=== PATIENT | male | born 1955 | race Caucasian/White ===

== ENCOUNTER 2020-03-06 11:16 | Outpatient (REF) | payer MEDICARE, OTHER, SELFPAY ==
[2020-03-06 12:54] LABS: PSA,Total (Free>4and<10) 4.92 ng/mL (0.00-4.00)
[2020-03-07 12:57] LABS: Free Prostate Spec Ag 0.8 ng/mL; Percent Free Prostate Spec Ag 14 % (calc) (>25); Prostate Specific Ag Total 5.8 ng/mL (< OR = 4.0)
== END 2020-03-06 11:17 | disposition home or self-care (01) ==
LOC: HO.LAB 11:16
PROVIDERS: PCP Pediatrics; Visit Provider Urology
DX: R97.20 Elevated prostate specific antigen [PSA] (principal)
CPT/HCPCS: 84153

== ENCOUNTER 2020-07-17 12:12 | Outpatient (REF) | payer MEDICARE, MEDICAID, SELFPAY ==
--- NOTE | ~2020-07-17 | XR_ITS ---
EXAMINATION: XR BILATERAL HIPS WITH AP PELVIS CLINICAL INFORMATION: Bilateral hip pain. COMPARISON: None TECHNIQUE: AP view of the pelvis and 2 views of each hip were obtained. FINDINGS: Normal articulation at bilateral hip joints. Mild bilateral hip joint narrowing. No evidence of acute fracture or dislocation. SI joints, symphysis pubis are intact. No acute pelvic fracture is identified. XR/XR hip BI w PEL1V IMPRESSION: Mild bilateral hip joint arthritis. No acute osseous abnormality seen.
== END 2020-07-17 12:13 | disposition home or self-care (01) ==
LOC: HO.XRAY 12:12
PROVIDERS: PCP Pediatrics; Visit Provider Pediatrics
DX: M25.551 Pain in right hip (principal); M25.552 Pain in left hip
CPT/HCPCS: 73521

== ENCOUNTER 2021-02-06 08:09 | Outpatient (REF) | payer MEDICARE, OTHER, SELFPAY ==
--- NOTE | ~2021-02-06 | XR_ITS ---
EXAMINATION: XR BILATERAL HIPS WITH AP PELVIS CLINICAL INFORMATION: Hip pain. COMPARISON: Hip radiographs dated 07/17/2020. TECHNIQUE: AP view the pelvis as well as AP and frog-leg lateral views of the right and left hip. FINDINGS: No acute fracture or dislocation. Mild right and left hip joint space narrowing. No significant marginal osteophytes. No osseous erosion. No abnormal soft tissue calcification. XR/XR hip BI w PEL1V IMPRESSION: Mild right and left hip arthrosis, unchanged.
== END 2021-02-06 08:10 | disposition home or self-care (01) ==
LOC: HO.XRAY 08:09
PROVIDERS: PCP Pediatrics; Visit Provider Pediatrics
DX: M25.551 Pain in right hip (principal); M25.552 Pain in left hip
CPT/HCPCS: 73521

== ENCOUNTER → 2022-03-31 08:50 | Outpatient (REF) | payer MEDICARE, OTHER, SELFPAY ==
--- NOTE | 2022-03-31 08:53 | CA_ITS ---
Transthoracic Echocardiogram Patient (Last, First, Middle): Ananth Jarvis A Gender: Male Date of : 1955 Age: 66 Procedure Date: 03/31/2022 Procedure Type: Transthoracic Echocardiogram Location: OP Height: 165.1 cm Weight: 69.4 kg BSA: 1.77 m2 Heart Rate: 74 bpm BP: 162 / 80 mmHg Cooper Helper: SB Referring MD: Marci Doan MD Manager Night: Faisal Mathis MD Symptoms: ELEV BP Study Quality: Adequate ECG Rhythm: Sinus Conclusions: - 1. Mildly reduced LV systolic function with LVEF of 45-50% with impaired relaxation filling pattern 2. Normal cardiac valvular Doppler 3. Normal RV systolic pressure 4. No gross pericardial effusion Findings Left Ventricle Normal left ventricular cavity size. There is normal left ventricular wall thickness. The left ventricular systolic function is mildly decreased. The visually estimated ejection fraction is between 45-50%. Spectral Doppler is indicative of an impaired relaxation filling pattern. E/E prime ratio is between 8 and 15 consistent with indeterminate filling pressures. Right Ventricle Normal right ventricular cavity size and systolic function. Atria The left atrium is normal in size. There is lipomatous hypertrophy of the interatrial septum. There is no evidence of interatrial shunt. The right atrium is normal in size. Aortic Valve Normal aortic valve structure and function. There is no aortic valve stenosis. There is no aortic valve regurgitation. Mitral Valve Normal mitral valve structure and function. There is trace mitral valve regurgitation. There is no mitral valve stenosis. Pulmonic Valve The pulmonic valve is likely normal. Tricuspid Valve Normal tricuspid valve structure. There is trace tricuspid valve regurgitation. The right ventricular systolic pressure is normal. The right ventricular systolic pressure is 25 mmHg. Normal right atrial pressure. There is no evidence of pulmonary hypertension. Great Vessels All visible segments of the aorta are normal in size. The pulmonary artery was not well visualized. Venous The inferior vena cava is normal in size and collapses greater than 50% with inspiration. Pericardium/Pleural There is no evidence of pericardial effusion. Prior Study Comparison No prior study available for comparison. Measurements 2D Linear Measurements IVSd: 0.76 0.6-0.9/0.6-1.0 cm LVIDd: 4.82 3.9-5.3/4.2-5.9 cm LVIDd Index: 2.72 2.4-3.2/2.2-3.1 cm/m2 LVIDs: 3.90 2.0-3.6 cm LVPWd: 0.62 0.7-1.1 cm LA Diam: 2.70 2.7-3.8/3.0-4.0 cm LAIDs Index: 1.53 1.5-2.3 cm/m2 LV Mass: 131.28 67-162/88-224 g LV Mass Index: 74.17 43-95/49-115 g/m2 LVOT Diam: 2.10 3.0+(-)1.3 cm 2D Systolic Function EF 4C: 41.00 >55% EF 2C: 46.80 >55% EF BiP: 43.70 >55% Mitral Valve MV Pk E: 0.51 MV PK A: 0.80 MV Decel Time: 173.00 E/A: 0.60 E'Lateral: 5.77 E'Medial: 6.42 E/E' Med: 8.00 E/E' Lat: 8.90 PHT: 51.00 MVA PHT: 4.31 Decel Ness: 2.98 Aortic Valve AoV Pk [place]oteo: 1.11 AoV Pk Grad: 5.00 NAVYA: 2.75 LVOT LVOT Pk [place]oteo: 0.88 LVOT Mn [place]ote[place]: 0.57 LVOT VTI: 0.17 LVOT Pk Grad: 3.00 LVOT Mn Grad: 2.00 LVOT Diam: 2.10 LVOT Area: 3.46 Diastolic Function MV Pk E: 0.51 MV Pk A: 0.80 E/A: 0.60 E'Medial: 6.42 E/E' Med: 8.00 E' Laterial: 5.77 E/E' Lat: 8.90 Right Ventricle TAPSE (mm): 16.60 TVS' Timoteo: 11.60 Tricuspid Valve TR Pk Timoteo: 2.36 TR Pk Grad: 22.00 RA Press: 3.00 RVSP: 25.00 Great Vessels Aorta Sinus of Valsalva: 3.40 2.0-3.5 cm Ao Asc: 3.00 2.1-3.4 cm Pulmonary Veins Pulm Vein S/D 1.40 Pulmonary Valve PV Pk Timoteo: 1.31 Peak PV Grad: 7.00 Updated in Other Vendor System with Status of Final Faisal Mathis MD electronically signed on 04/01/2022 11:38:55 AM with status of Final
== END ==
LOC: HO.CARD 08:50
PROVIDERS: PCP Pediatrics; Visit Provider Pediatrics
DX: E78.2 Mixed hyperlipidemia (principal); R03.0 Elevated blood-pressure reading, without diagnosis of hypertension
CPT/HCPCS: 93306

== ENCOUNTER → 2022-05-26 08:07 | Outpatient (BNVA) | payer MEDICARE, MEDICAID, SELFPAY | PROVIDERS: PCP Pediatrics; Visit Provider Internal Medicine Cardiovascular Disease | DX: I42.9 Cardiomyopathy, unspecified (principal); I10 Essential (primary) hypertension; R00.2 Palpitations; Z79.899 Other long term (current) drug therapy | CPT/HCPCS: 93005; 99202 ==

== ENCOUNTER → 2022-06-04 09:34 | Outpatient (REF) | payer MEDICARE, OTHER, SELFPAY ==
--- NOTE | 2022-06-04 09:39 | HM_ITS ---
Conclusion: 1. Patient was monitored for total period of 6 days and 22 hours 2. Baseline was normal sinus rhythm with average heart of 71 beats per minute 3. No significant pauses or bradycardia noted 4. Very rare ectopy noted 5. No patient reported in the diary but patient activated the monitor x1 which correlated with sinus rhythm MTDD
== END ==
LOC: HO.CARD 09:34
PROVIDERS: PCP Pediatrics; Visit Provider Internal Medicine Cardiovascular Disease
DX: I42.9 Cardiomyopathy, unspecified (principal); R00.2 Palpitations
CPT/HCPCS: 93242

== ENCOUNTER → 2022-06-11 09:30 | Outpatient (REF) | payer MEDICARE, OTHER, SELFPAY ==
--- NOTE | ~2022-06-11 | NM_ITS ---
Exercise Myocardial perfusion study Indication: Chest pain to evaluate for myocardial ischemia Technique: The patient was brought in for an exercise perfusion study on 06/11/2022. Patient performed exercise as per James protocol and was injected 25 mCi of sestamibi was given intravenously one target HR was achieved. Images were obtained using the SPECT gamma camera interlaced with the gating device. Images were obtained in supine position. Resting perfusion study was performed on 06/15/2022. Patient was administered 25 mCi of sestamibi intravenously at rest. Images were then obtained in supine position. Images obtained with and without CT attenuation. Total DLP 88 mGy-cm Images were processed with the software and compared side to side in short axis, horizontal long axis and vertical long axis views. Findings: The stress perfusion study showed non attenuated images show mildly reduced uptake in the inferoapical and inferior wall of the LV myocardium. Findings are somewhat suboptimal due to subdiaphragmatic uptake interfering with inferior wall uptake. Attenuation corrected images are suboptimal. The gated study shows normal LV systolic function with calculated LVEF of 59%. LV cavity is normal in size. The gated study shows normal systolic wall thickening and contraction of all segments. There is mildly transient ischemic dilation. Resting study shows improvement in uptake in the inferior and inferoapical wall on non attenuated images. Attenuated corrected images are of suboptimal quality.. Gating at rest reveals normal systolic wall motion with visually estimated ejection fraction at greater than 60%. The findings are consistent with reversible defect that area of inferoapical wall suggestive of ischemia with possible mild ischemia. Inferior wall in the RCA territory.. NM/NM cardiolite stress test Impression: 1. Reversible defect in the RCA territory suggestive of ischemia 2. Gated LVEF is 59% 3. Transient ischemic dilatation present Stress EKG is negative for ischemia
--- NOTE | 2022-06-11 09:33 | CA_ITS ---
Acquisition Time: 2022-06-11 09:50:50 Total Exercise Time: 00:04:51 Test Indications: Palpitations Medications: LORATADINE LOSARTAN ROSUVASTATIN FINASTERIDE CARVEDILOL Protocol: FABIOLA Max HR: 146 BPM 96% of Pred: 151 BPM Max BP: 150/080 mmHG Max Work Load: 5.9 METS Exercise stress test with exercise 4 min 51 sec of Fabiola protocol ( in stage 2 speed reduced to 2.2 MPH) achieving 96% MPHR, with fatigue and back discomfort, no chest discomfort, with isolated PVCs and one ventricular cuplet in stage 2, with normotensive response to exercise, without EKG changes meeting criteria for ischemia. Nuclear images pending. Test reviewed with Dr Mathis Referred By: Faisal Mathis Overread By: JOSE GARZA
== END ==
LOC: HO.CARD 09:30
PROVIDERS: Visit Provider Internal Medicine Cardiovascular Disease
DX: R07.9 Chest pain, unspecified (principal); I42.9 Cardiomyopathy, unspecified
CPT/HCPCS: 78452; 93017; A9500

== ENCOUNTER → 2022-06-16 08:09 | Outpatient (BNVA) | payer MEDICARE, MEDICAID, SELFPAY | PROVIDERS: PCP Pediatrics; Referring Provider Pediatrics; Visit Provider Internal Medicine Cardiovascular Disease | DX: I42.9 Cardiomyopathy, unspecified (principal) | CPT/HCPCS: 99212 ==

== ENCOUNTER → 2022-07-07 08:39 | Outpatient (BNVA) | payer MEDICARE, MEDICAID, SELFPAY | PROVIDERS: PCP Pediatrics; Referring Provider Pediatrics; Visit Provider Internal Medicine Cardiovascular Disease | DX: I42.9 Cardiomyopathy, unspecified (principal); I25.10 Atherosclerotic heart disease of native coronary artery without angina pectoris | CPT/HCPCS: 99212 ==

== ENCOUNTER 2022-07-23 08:16 | Outpatient (REF) | payer MEDICARE, SELFPAY ==
--- NOTE | ~2022-07-23 | XR_ITS ---
EXAMINATION: RIGHT SHOULDER AND CERVICAL SPINE CLINICAL INFORMATION: Right shoulder pain. COMPARISON: None. TECHNIQUE: Right shoulder 4 views. Cervical spine 6 views. FINDINGS: Right Shoulder: The glenohumeral and AC joint space is maintained normal. No visible acute fracture, dislocation or subluxation seen. No bony erosive changes. The soft tissues are normal. Cervical Spine: There is normal cervical lordosis. The vertebral heights and alignment is normal. There is loss of C5-C6, C6-C7 and C7-T1 disc heights. On oblique view, there is uncovertebral hypertrophic changes at C4-C5 and C5-C6 and C6-C7 disc levels with minimal bilateral narrowing of neural foramina. No acute fracture or dislocation seen. The prevertebral soft tissues are normal. XR/XR shoulder RT min 2V IMPRESSION: Unremarkable right shoulder exam. Degenerative disc changes with uncovertebral hypertrophic changes bilaterally as described above. No visible acute fracture or dislocation seen. If patient has persistent right shoulder pain, a MRI of the cervical spine can be obtained.
--- NOTE | ~2022-07-23 | XR_ITS ---
EXAMINATION: RIGHT SHOULDER AND CERVICAL SPINE CLINICAL INFORMATION: Right shoulder pain. COMPARISON: None. TECHNIQUE: Right shoulder 4 views. Cervical spine 6 views. FINDINGS: Right Shoulder: The glenohumeral and AC joint space is maintained normal. No visible acute fracture, dislocation or subluxation seen. No bony erosive changes. The soft tissues are normal. Cervical Spine: There is normal cervical lordosis. The vertebral heights and alignment is normal. There is loss of C5-C6, C6-C7 and C7-T1 disc heights. On oblique view, there is uncovertebral hypertrophic changes at C4-C5 and C5-C6 and C6-C7 disc levels with minimal bilateral narrowing of neural foramina. No acute fracture or dislocation seen. The prevertebral soft tissues are normal. XR/XR cervical spine 5V IMPRESSION: Unremarkable right shoulder exam. Degenerative disc changes with uncovertebral hypertrophic changes bilaterally as described above. No visible acute fracture or dislocation seen. If patient has persistent right shoulder pain, a MRI of the cervical spine can be obtained.
== END 2022-07-23 08:17 | disposition home or self-care (01) ==
LOC: HO.XRAY 08:16
PROVIDERS: PCP Pediatrics; Visit Provider Pediatrics
DX: M25.511 Pain in right shoulder (principal); M54.2 Cervicalgia; M05.79 Rheumatoid arthritis with rheumatoid factor of multiple sites without organ or systems involvement; G89.29 Other chronic pain
CPT/HCPCS: 72050; 73030

== ENCOUNTER 2022-09-17 07:14 | Outpatient (REF) | payer MEDICARE, SELFPAY ==
[2022-09-17 08:15] LABS: Cholesterol 204 mg/dL; HDL Cholesterol 45 mg/dL; LDL Cholesterol Calculated 146 mg/dl; Triglycerides 65 mg/dL
== END 2022-09-17 07:15 | disposition home or self-care (01) ==
LOC: HO.LAB 07:14
PROVIDERS: PCP Pediatrics; Visit Provider Internal Medicine Cardiovascular Disease
DX: I25.10 Atherosclerotic heart disease of native coronary artery without angina pectoris (principal)
CPT/HCPCS: 36415; 80061

== ENCOUNTER → 2022-09-23 13:49 | Outpatient (BNVA) | payer MEDICARE, SELFPAY | PROVIDERS: PCP Pediatrics; Referring Provider Pediatrics; Visit Provider Nurse Practitioner Family | DX: I25.10 Atherosclerotic heart disease of native coronary artery without angina pectoris (principal); I42.9 Cardiomyopathy, unspecified; I10 Essential (primary) hypertension; E78.5 Hyperlipidemia, unspecified | CPT/HCPCS: 99212 ==

== ENCOUNTER 2022-12-09 07:10 | Outpatient (REF) | payer MEDICARE, SELFPAY ==
[2022-12-09 09:53] LABS: Alanine Aminotransferase 17 U/L (0-40); Albumin Level 4.1 g/dL (3.5-5.0); Alkaline Phosphatase 91 U/L (39-117); Anion Gap 11 (12-20); Aspartate Amino Transferase 19 U/L (5-37); Bilirubin Total 1.5 mg/dL (0.0-1.0); Blood Urea Nitrogen 12 mg/dL (9-16); Calcium 9.7 mg/dL (8.4-10.2); Carbon Dioxide 26 mmol/L (22-29); Chloride 105 mmol/L (96-108); Cholesterol 188 mg/dL; Estimated Glomerular Filt Rate > 60; Glucose Fasting 90 mg/dL (60-99); HDL Cholesterol 43 mg/dL; LDL Cholesterol Calculated 130 mg/dl; Sodium 138 mmol/L (135-145); Total Protein 7.3 g/dL (6.5-8.0); Triglycerides 79 mg/dL
== END 2022-12-09 07:11 | disposition home or self-care (01) ==
LOC: HO.LAB 07:10
PROVIDERS: PCP Pediatrics; Visit Provider Nurse Practitioner Family
DX: E78.5 Hyperlipidemia, unspecified (principal)
CPT/HCPCS: 36415; 80053; 80061

== ENCOUNTER → 2023-03-28 09:13 | Outpatient (REF) | payer MEDICARE, SELFPAY ==
--- NOTE | 2023-03-28 09:16 | CA_ITS ---
Transthoracic Echocardiogram Patient (Last, First, Middle): Ananth Jarvis A Gender: Male Date of : 1955 Age: 67 Procedure Date: 03/28/2023 Procedure Type: Transthoracic Echocardiogram Location: OP Height: 165.1 cm Weight: 65.77 kg BSA: 1.73 m2 Heart Rate: 65 bpm BP: 128 / 70 mmHg Department Mgr: LEE ANN Referring MD: Shantell LAMBERT Manager Continuous Improvement: Faisal Mathis MD Symptoms: I42.9 - Cardiomyopathy, unspecified Study Quality: Adequate ECG Rhythm: Sinus Conclusions: - 1. Low normal LV ejection fraction with LVEF of 50-55% with impaired relaxation filling pattern 2. Normal cardiac valvular Doppler 3. Normal RV systolic pressure 4. No gross pericardial effusion Findings Left Ventricle Normal left ventricular cavity size. There is normal left ventricular wall thickness. The left ventricular systolic function is low normal. The visually estimated ejection fraction is between 50-55%. Spectral Doppler is indicative of an impaired relaxation filling pattern. E/E prime ratio is between 8 and 15 consistent with indeterminate filling pressures. Right Ventricle Normal right ventricular cavity size and systolic function. Atria The left atrium is normal in size. There is no evidence of interatrial shunt. The right atrium is normal in size. There is a prominent Chiari network. Aortic Valve There is mild thickening of the aortic valve. There is no aortic valve stenosis. There is no aortic valve regurgitation. Mitral Valve Normal mitral valve structure and function. There is trace mitral valve regurgitation. There is no mitral valve stenosis. Pulmonic Valve The pulmonic valve is likely normal. There is trace pulmonic valve regurgitation. Tricuspid Valve Normal tricuspid valve structure. There is mild tricuspid valve regurgitation. The right ventricular systolic pressure is normal. The right ventricular systolic pressure is 29 mmHg. Normal right atrial pressure. There is no evidence of pulmonary hypertension. Great Vessels The pulmonary artery was not well visualized. Venous The inferior vena cava is normal in size and collapses greater than 50% with inspiration. Pericardium/Pleural There is no evidence of pericardial effusion. Prior Study Comparison Changes noted compared to prior study dated: 03/31/2022. LV systolic function is marginally improved Measurements 2D Linear Measurements IVSd: 0.97 0.6-0.9/0.6-1.0 cm LVIDd: 4.64 3.9-5.3/4.2-5.9 cm LVIDd Index: 2.68 2.4-3.2/2.2-3.1 cm/m2 LVIDs: 3.84 2.0-3.6 cm LVPWd: 0.67 0.7-1.1 cm LV Mass: 154.18 67-162/88-224 g LV Mass Index: 89.12 43-95/49-115 g/m2 LVOT Diam: 2.40 3.0+(-)1.3 cm 2D Systolic Function EF 4C: 43.30 >55% EF 2C: 56.20 >55% EF BiP: 51.10 >55% Mitral Valve MV Pk E: 0.73 MV PK A: 0.82 MV Decel Time: 179.00 E/A: 0.90 E'Lateral: 8.92 E'Medial: 7.51 E/E' Med: 9.70 E/E' Lat: 8.20 PHT: 52.00 MVA PHT: 4.23 Decel [place]: 4.06 Aortic Valve AoV Pk Timoteo: 1.14 AoV Pk Grad: 5.00 NAVYA: 2.97 LVOT LVOT Pk Timoteo: 0.83 LVOT Mn Timoteo: 0.55 LVOT VTI: 0.18 LVOT Pk Grad: 3.00 LVOT Mn Grad: 1.00 LVOT Diam: 2.40 LVOT Area: 4.52 Diastolic Function MV Pk E: 0.73 MV Pk A: 0.82 E/A: 0.90 E'Medial: 7.51 E/E' Med: 9.70 E' Laterial: 8.92 E/E' Lat: 8.20 Right Ventricle TAPSE (mm): 25.20 TVS' Timoteo: 9.79 Tricuspid Valve TR Pk Timoteo: 2.54 TR Pk Grad: 26.00 RA Press: 3.00 RVSP: 29.00 Great Vessels Aorta Sinus of Valsalva: 3.30 2.0-3.5 cm Ao Asc: 3.10 2.1-3.4 cm Pulmonary Valve PV Pk Timoteo: 1.25 Peak PV Grad: 6.00 Updated in Other Vendor System with Status of Final Faisal Mathis MD electronically signed on 03/28/2023 12:06:58 PM with status of Final
== END ==
LOC: HO.CARD 09:13
PROVIDERS: PCP Pediatrics; Visit Provider Nurse Practitioner Family
DX: I42.9 Cardiomyopathy, unspecified (principal)
CPT/HCPCS: 93306

== ENCOUNTER → 2023-03-28 09:16 | Outpatient (BNV) | payer MEDICARE, SELFPAY | PROVIDERS: PCP Pediatrics; Visit Provider Internal Medicine Cardiovascular Disease | DX: I36.1 Nonrheumatic tricuspid (valve) insufficiency (principal) | CPT/HCPCS: 93306 ==

== ENCOUNTER 2023-04-05 13:14 | Outpatient (AMB) | payer MEDICARE, SELFPAY ==
[2023-04-05 13:18] VITALS: BP 116/70; PULSE 65; BMI 23.8
--- NOTE | 2023-04-05 13:18 | MHC.OFFVIS ---
Intake Vital Signs 04/05/23 13:18 Height 5 ft 5 in Weight 143 lb 4.807 oz BMI 23.8 BP 116/70 Blood Pressure Location Lt brachial Position Sitting Pulse 65 Intake Visit Reasons: 6 mth f/up echo Intake Note: 6 month follow-up with ekg after echo feeling good Inspector Repairer [place] Required: No Allergies seasonal Allergy (Unknown, Uncoded 07/07/22 08:45) Unknown Medication List - Last Reconciled 04/05/23 by Faisal Mathis MD aspirin 81 mg PO DAILY carvedilol 6.25 mg PO BID 90 days cholecalciferol (vitamin D3) 2,000 units PO QWEEK finasteride 5 mg PO DAILY fluticasone propionate 110 mcg/actuation (Flovent HFA) 110 mcg inhalation BID loratadine 10 mg PO DAILY losartan 25 mg PO BID 90 days omeprazole 20 mg PO BID rosuvastatin 20 mg PO DAILY 90 days tramadol 50 mg PO TID PRN HPI HPI Comments History of Present Illness Details Ananth comes for follow-up. He says that he is feeling very well. He denies any significant symptoms from cardiac perspective. Exercise regular. Denies any exertional chest pain or shortness of breath. No orthopnea, PND, leg edema. Blood pressure is well optimized at home. His last LDL was not well optimized at 130 mg/dL. Any palpitations, lightheadedness, syncope. [facility] Medical History CAD (coronary artery disease) Cardiomyopathy High blood pressure Family History Mother Diabetes Social History Alcohol intake: never Patient Tobacco Use Status: Former Tobacco user Review of Systems Const Denies chills, Denies fatigue, Denies fever(s), Denies frequent falls, Denies weakness, Denies weight gain and Denies weight loss ENT Denies dizziness Card Denies chest pain, Denies leg edema, Denies lightheadedness, Denies palpitations, Denies dyspnea, Denies dyspnea on exertion, Denies orthopnea and Denies other (loss of consciousness) Resp Denies cough, Denies dyspnea and Denies dyspnea on exertion GI Denies hematochezia and Denies change in stool character Musc Denies abnormal gait, Denies muscle weakness, Denies numbness, Denies radiating pain into limb and Denies tingling Neuro Denies abnormal gait, Denies dizziness, Denies frequent falls, Denies numbness, Denies tingling and Denies weakness Endo Denies fatigue and Denies palpitations Physical Exam Vital Signs: Last Vital Signs Pulse 65 04/05/23 13:18 BP 116/70 04/05/23 13:18 BMI result Body Mass Index 23.8 Const General: cooperative, healthy appearing, comfortable and no acute distress Orientation/consciousness: patient oriented x3 Neck Neck: Yes normal visual inspection and Yes no JVD Resp Effort & Inspection: normal respiratory effort Auscultation: clear to auscultation bilaterally, no crackles, no rales, no rhonchi and no wheezes Cardio Jugular venous distension: no JVD Rate: regular rate Rhythm: regular rhythm Heart sounds: S1 normal heart sound present, S2 normal heart sound present, no gallops, no murmurs and no rubs Neuro General: patient oriented x3 Extrem General: Yes normal to inspection and No no pedal edema Psych Appearance: grossly normal Mental Status: mental status grossly normal Speech and movement: Normal speech and movement present Office Procedures EKG Details: EKG shows normal sinus rhythm with normal EKG [id number], Complete Assessment & Plan Assessment & Plan (1) Cardiomyopathy: Code(s): I42.9 - Cardiomyopathy, unspecified Plan: Cardiomyopathy with low normal LVEF with improved LV ejection fraction on medical therapy. Importance of medical therapy was discussed. Continue current neurohormonal modulation with losartan carvedilol. Blood pressure is well optimized. Monitor echocardiogram in the year's time. Avoidance of cardiotoxic agent such as alcohol was discussed. Signs and symptoms of heart failure were discussed. He understands. (2) CAD (coronary artery disease): Comment: nonobstructive mild disease by coronary CTA, does not explain his cardiomyopathy. False-positive myocardial perfusion imaging Code(s): I25.10 - Atherosclerotic heart disease of [place] coronary artery without angina pectoris Plan: Nonobstructive CAD by cardiac catheterization. Doing well with no symptoms of angina. His LDL is not well optimized. Will further uptitrate Crestor to 40 mg daily. Target goal LDL closer to 70 mg/dL. Continue aggressive blood pressure control which is well optimized. Continue low-dose aspirin therapy. Will follow up in the clinic in 1 year's time, sooner p.r.n.. Thank you for allowing me to partake in his care Orders: Orders CA echo transthoracic complete 50 Weeks I42.9 - Cardiomyopathy, unspecified Coding Level of Care Code Est Pt Level 4 (41669) Diagnoses Cardiomyopathy I42.9 CAD (coronary artery disease) I25.10 CPT Codes EKG - CPT: 64376-[id number], Complete ([id number])
== END 2023-04-05 13:47 | disposition home or self-care (01) ==
PROVIDERS: Visit Provider Internal Medicine Cardiovascular Disease
DX: I42.9 Cardiomyopathy, unspecified (principal); I25.10 Atherosclerotic heart disease of native coronary artery without angina pectoris
CPT/HCPCS: 93010; 99214

== ENCOUNTER → 2023-04-05 13:14 | Outpatient (BNVA) | payer MEDICARE, SELFPAY | PROVIDERS: Visit Provider Internal Medicine Cardiovascular Disease | DX: I25.10 Atherosclerotic heart disease of native coronary artery without angina pectoris (principal); I42.9 Cardiomyopathy, unspecified | CPT/HCPCS: 93005; 99212 ==

== ENCOUNTER 2023-06-28 07:06 | Outpatient (REF) | payer MEDICARE, SELFPAY ==
[2023-06-28 08:30] LABS: Cholesterol 129 mg/dL (<200); HDL Cholesterol 51 mg/dL (>40); LDL Cholesterol Calculated 67 mg/dL (<100); Triglycerides 59 mg/dL (<150)
== END 2023-06-28 07:07 | disposition home or self-care (01) ==
LOC: HO.LAB 07:06
PROVIDERS: PCP Pediatrics; Visit Provider Internal Medicine Cardiovascular Disease
DX: I25.10 Atherosclerotic heart disease of native coronary artery without angina pectoris (principal)
CPT/HCPCS: 36415; 80061

== ENCOUNTER 2023-10-28 11:13 | Outpatient (REF) | payer MEDICARE, SELFPAY ==
[2023-10-28 14:36] LABS: Hemoglobin 12.9 g/dl (14.0-18.0); Mean Corpuscular HGB Conc 33.1 g/dl (31.0-36.0); Mean Corpuscular Hemoglobin 31.2 pg (27.0-33.0); Mean Corpuscular Volume 94.4 fL (80.0-98.0); Mean Platelet Volume 10.8 fL (9.4-12.4); Platelet Count 237 X10*3/uL (160-400); Red Blood Count 4.13 X10*6/uL (4.60-5.80); Red Cell Distribution Width 12.4 % (11.0-16.0); White Blood Count 9.4 X10*3/uL (4.8-10.8)
[2023-10-28 14:51] LABS: Anion Gap 11 (12-20); Blood Urea Nitrogen 7 mg/dL (9-16); Carbon Dioxide 28 mmol/L (22-29); Chloride 106 mmol/L (96-108); Estimated Glomerular Filt Rate > 60; Glucose Fasting 96 mg/dL (60-99); Potassium 4.1 mmol/L (3.3-5.1); Sodium 141 mmol/L (135-145)
== END 2023-10-28 11:14 | disposition home or self-care (01) ==
LOC: HO.CHCLDS 11:13
PROVIDERS: Visit Provider Urology
DX: R97.20 Elevated prostate specific antigen [PSA] (principal)
CPT/HCPCS: 36415; 80051; 82565; 82947; 84520; 85027

== ENCOUNTER 2024-04-24 10:03 | Outpatient (REF) | payer MEDICARE, SELFPAY ==
[2024-04-24 13:44] LABS: MANUAL DIFF FLAG NO
[2024-04-24 14:06] LABS: Basophils Percent Auto 0.5 % (0-2); Eosinophils Absolute Auto 0.1 X10*3/uL (0.0-0.4); Eosinophils Percent Auto 2.1 % (0-4); Hematocrit 41.6 % (42.0-52.0); Hemoglobin 13.5 g/dl (14.0-18.0); Imm Gran Abs Auto 0.01 X10*3/uL (0.00-0.03); Imm Gran Pct Auto 0.2 % (0.0-0.4); Lymphocytes Absolute Auto 1.9 X10*3/uL (1.2-4.9); Lymphocytes Percent Auto 29.8 % (20-40); Mean Corpuscular HGB Conc 32.5 g/dl (31.0-36.0); Mean Corpuscular Hemoglobin 29.6 pg (27.0-33.0); Mean Corpuscular Volume 91.2 fL (80.0-98.0); Mean Platelet Volume 10.7 fL (9.4-12.4); Monocytes Absolute Auto 0.7 X10*3/uL (0.1-1.2); Monocytes Percent Auto 11.6 % (2-11); Neutrophils Absolute Auto 3.5 x10*3/uL (2.0-8.3); Neutrophils Percent Auto 55.8 % (45-73); Platelet Count 257 X10*3/uL (160-400); Red Blood Count 4.56 X10*6/uL (4.60-5.80); Red Cell Distribution Width 13.1 % (11.0-16.0); White Blood Count 6.2 X10*3/uL (4.8-10.8)
[2024-04-24 14:34] LABS: Alanine Aminotransferase 29 U/L (0-40); Albumin Level 4.2 g/dL (3.5-5.0); Alkaline Phosphatase 77 U/L (39-117); Anion Gap 9 (12-20); Aspartate Amino Transferase 30 U/L (5-37); Bilirubin Total 0.9 mg/dL (0.0-1.0); Blood Urea Nitrogen 10 mg/dL (9-16); Calcium 9.8 mg/dL (8.4-10.2); Carbon Dioxide 29 mmol/L (22-29); Chloride 108 mmol/L (96-108); Estimated Glomerular Filt Rate > 60; Glucose Random 100 mg/dL (60-115); Potassium 4.6 mmol/L (3.3-5.1); Sodium 141 mmol/L (135-145); TSH reflex Free T4 0.46 uIU/mL (0.32-4.0); Total Protein 7.3 g/dL (6.5-8.0); Vitamin D 25-OH Total 49.4 ng/mL (>30)
[2024-04-24 14:52] LABS: Creatinine Urine 133.15 mg/dL
[2024-04-24 14:55] LABS: Folate 11.6 ng/mL (> or = 4.0); Vitamin B12 320 pg/mL (200-900)
[2024-04-25 05:19] LABS: ~Hepatitis C Antibody Nonreactive (Nonreactive)
== END 2024-04-24 10:04 | disposition home or self-care (01) ==
LOC: HO.CHCLDS 10:03
PROVIDERS: Visit Provider Pediatrics
DX: I10 Essential (primary) hypertension (principal); K21.9 Gastro-esophageal reflux disease without esophagitis; I25.10 Atherosclerotic heart disease of native coronary artery without angina pectoris; R80.9 Proteinuria, unspecified
CPT/HCPCS: 36415; 80053; 82043; 82306; 82570; 82607; 82746; 84443; 85025; 86803

== ENCOUNTER → 2024-05-01 09:43 | Outpatient (REF) | payer MEDICARE, SELFPAY ==
--- NOTE | 2024-05-01 09:45 | CA_ITS ---
Transthoracic Echocardiogram Patient (Last, First, Middle): Ananth Jarvis A Gender: Male Date of : 1955 Age: 68 Procedure Date: 05/01/2024 Procedure Type: Transthoracic Echocardiogram Location: OP Height: 165. cm Weight: 64.87 kg BSA: 1.71 m2 Heart Rate: 64 bpm BP: 138 / 85 mmHg Sports Journalist: SUSAN Referring MD: Faisal Mathis MD Stock Preparer: Faisal Mathis MD Symptoms: I42.9 - Cardiomyopathy, unspecified Study Quality: Adequate ECG Rhythm: Sinus Conclusions: - 1. Low normal LV ejection fraction 50-55% with impaired relaxation filling pattern 2. Normal cardiac valvular Dopplers 3. Normal RV systolic pressure 4. Upper limits of normal ascending aortic size 5. No pericardial effusion Findings Left Ventricle Normal left ventricular cavity size. There is normal left ventricular wall thickness. The left ventricular systolic function is low normal. The visually estimated ejection fraction is between 50-55%. Spectral Doppler is indicative of an impaired relaxation filling pattern. E/E prime ratio is between 8 and 15 consistent with indeterminate filling pressures. Right Ventricle Normal right ventricular cavity size and systolic function. Atria Both atria are normal in size. There is lipomatous hypertrophy of the interatrial septum. There is no evidence of interatrial shunt. Aortic Valve There is mild calcification of the aortic valve. There is no aortic valve stenosis. There is no aortic valve regurgitation. Mitral Valve There is mild anterior and posterior mitral leaflet thickening. There is trace mitral valve regurgitation. There is no mitral valve stenosis. Pulmonic Valve The pulmonic valve was not well visualized. Tricuspid Valve Likely normal tricuspid valve structure and function. There is trace tricuspid valve regurgitation. The right ventricular systolic pressure is normal. The right ventricular systolic pressure is 24 mmHg. Normal right atrial pressure. There is no evidence of pulmonary hypertension. Great Vessels All visible segments of the aorta are normal in size. The pulmonary artery was not well visualized. There is no dilatation of the ascending aorta measuring 3.50 cm. Venous The inferior vena cava is normal in size and collapses greater than 50% with inspiration. Pericardium/Pleural There is no evidence of pericardial effusion. Prior Study Comparison No significant change compared to prior study dated: 03/28/2023. Measurements 2D Linear Measurements IVSd: 0.94 0.6-0.9/0.6-1.0 cm LVIDd: 4.45 3.9-5.3/4.2-5.9 cm LVIDd Index: 2.60 2.4-3.2/2.2-3.1 cm/m2 LVIDs: 2.96 2.0-3.6 cm LVPWd: 0.88 0.7-1.1 cm LA Diam: 2.70 2.7-3.8/3.0-4.0 cm LAIDs Index: 1.58 1.5-2.3 cm/m2 LV Mass: 164.95 67-162/88-224 g LV Mass Index: 96.46 43-95/49-115 g/m2 LVOT Diam: 1.90 3.0+(-)1.3 cm 2D Systolic Function EF 4C: 45.30 >55% EF 2C: 59.50 >55% EF BiP: 52.40 >55% Mitral Valve MV Pk E: 0.58 MV PK A: 0.67 MV Decel Time: 248.00 E/A: 0.90 E'Lateral: 7.83 E'Medial: 5.55 E/E' Med: 10.40 E/E' Lat: 7.40 PHT: 73.00 MVA PHT: 3.01 Decel [place]: 2.33 Aortic Valve AoV Pk [place]: 1.16 AoV Mn Timoteo: 0.85 AoV VTI: 0.25 AoV Pk Grad: 5.00 Aov Mn Grad: 3.00 NAVYA Cont.VTI: 2.18 LVOT LVOT Pk [place]: 0.86 LVOT Mn [place]: 0.63 LVOT VTI: 0.19 LVOT Pk Grad: 3.00 LVOT Mn Grad: 2.00 LVOT Diam: 1.90 LVOT Area: 2.84 Diastolic Function MV Pk E: 0.58 MV Pk A: 0.67 E/A: 0.90 E'Medial: 5.55 E/E' Med: 10.40 E' Laterial: 7.83 E/E' Lat: 7.40 Right Ventricle TAPSE (mm): 23.60 TVS' [place]: 10.90 Tricuspid Valve TR Pk [place]: 2.27 TR Pk Grad: 21.00 RA Press: 3.00 RVSP: 24.00 Great Vessels Aorta Sinus of Valsalva: 3.20 2.0-3.5 cm Ao Asc: 3.50 2.1-3.4 cm Updated in Other Vendor System with Status of Final Faisal Mathis MD electronically signed on 05/02/2024 4:52:36 PM with status of Final
== END ==
LOC: HO.CARD 09:43
PROVIDERS: PCP Pediatrics; Visit Provider Internal Medicine Cardiovascular Disease
DX: I42.9 Cardiomyopathy, unspecified (principal); I25.10 Atherosclerotic heart disease of native coronary artery without angina pectoris
CPT/HCPCS: 93306

== ENCOUNTER → 2024-05-01 09:45 | Outpatient (BNV) | payer MEDICARE, SELFPAY | PROVIDERS: PCP Pediatrics; Visit Provider Internal Medicine Cardiovascular Disease | DX: I35.8 Other nonrheumatic aortic valve disorders (principal) | CPT/HCPCS: 93306 ==

== ENCOUNTER 2024-05-17 09:10 | Outpatient (AMB) | payer MEDICARE, SELFPAY ==
[2024-05-17 09:22] VITALS: BP 134/76; PULSE 64; BMI 24.6
--- NOTE | 2024-05-17 09:22 | MHC.OFFVIS ---
Vital Signs 05/17/24 09:22 Height 5 ft 5 in Weight 147 lb 11.355 oz BMI 24.6 BP 134/76 Blood Pressure Location Lt brachial Position Sitting Pulse 64 Intake Visit Reasons: fu after echo Intake Note: Follow-up after echo with ekg feeling ok Supervisor Rice Milling Required: Yes Supervisor Rice Milling Name: Tommie Braun Allergies seasonal Allergy (Unknown, Uncoded 07/07/22 08:45) Unknown Medication List - Last Reconciled 05/17/24 by Faisal Mathis MD aspirin 81 mg PO DAILY carvedilol 6.25 mg PO BID 90 days cholecalciferol (vitamin D3) 2,000 units PO QWEEK fluticasone propionate 110 mcg/actuation (Flovent HFA) 110 mcg inhalation BID loratadine 10 mg PO DAILY losartan 25 mg PO ONCE omeprazole 20 mg PO BID rosuvastatin (Crestor) 40 mg PO DAILY tramadol 50 mg PO TID PRN HPI Comments Details: Ananth comes for follow-up. History was obtained with help of interpreter deaf. Patient has been doing well from cardiac perspective. Remains active. Denies any exertional chest pain or shortness of breath. Denies any orthopnea, PND, leg edema. Most recent echocardiogram shows low normal LV EF which has remained stable. He denies any prolonged palpitation irregular heartbeat. He says blood pressure nighttime remains on the lower side so he is only taking losartan once a day in the morning. He was last LDL was 67 mg/dL. FORMERLY [facility], [facility] Medical History CAD (coronary artery disease) Cardiomyopathy High blood pressure Family History Mother Diabetes Social History Alcohol intake: never Patient Tobacco Use Status: Former Tobacco user Review of Systems Const Denies chills, Denies fatigue, Denies fever(s), Denies frequent falls, Denies weakness, Denies weight gain and Denies weight loss ENT Denies dizziness Card Denies chest pain, Denies leg edema, Denies lightheadedness, Denies palpitations, Denies dyspnea, Denies dyspnea on exertion, Denies orthopnea and Denies other (loss of consciousness) Resp Denies cough, Denies dyspnea and Denies dyspnea on exertion GI Denies hematochezia and Denies change in stool character Musc Denies abnormal gait, Denies muscle weakness, Denies numbness, Denies radiating pain into limb and Denies tingling Neuro Denies abnormal gait, Denies dizziness, Denies frequent falls, Denies numbness, Denies tingling and Denies weakness Endo Denies fatigue and Denies palpitations Physical Exam Vital Signs: Last Vital Signs Pulse 64 05/17/24 09:22 BP 134/76 05/17/24 09:22 BMI result Body Mass Index 24.6 Const General: cooperative, healthy appearing, comfortable and no acute distress Orientation/consciousness: patient oriented x3 Neck Neck: Yes normal visual inspection and Yes no JVD Resp Effort & Inspection: normal respiratory effort Auscultation: clear to auscultation bilaterally, no crackles, no rales, no rhonchi and no wheezes Cardio Jugular venous distension: no JVD Rate: regular rate Rhythm: regular rhythm Heart sounds: S1 normal heart sound present, S2 normal heart sound present, no gallops, no murmurs and no rubs Neuro General: patient oriented x3 Extrem General: Yes normal to inspection and No no pedal edema Psych Appearance: grossly normal Mental Status: mental status grossly normal Speech and movement: Normal speech and movement present Office Procedures EKG Details: EKG shows normal sinus rhythm with normal EKG. [id number], Complete Assessment & Plan Assessment & Plan (1) Cardiomyopathy: Code(s): I42.9 - Cardiomyopathy, unspecified Category: Medical Plan: Cardiomyopathy process which has remained stable with low normal LV ejection fraction with a signs or symptoms of heart failure. Continue aggressive medical therapy. Continue neurohormonal modulation with carvedilol and losartan. Signs and symptoms of heart failure were discussed advised to monitor blood pressure at home and maintain a log. Avoidance of cardiotoxic agents were discussed. She understands and agrees. (2) CAD (coronary artery disease): Comment: nonobstructive mild disease by coronary CTA, does not explain his cardiomyopathy. False-positive myocardial perfusion imaging Code(s): I25.10 - Atherosclerotic heart disease of [place] coronary artery without angina pectoris Category: Medical Plan: Nonobstructive CAD without any symptoms. Continue low-dose aspirin therapy. Continue aggressive blood pressure control which is currently well optimized. Continue current statin therapy with well optimized LDL is 67 mg/dL. Importance of aggressive medical therapy was discussed. He understands agrees. Will follow up in the clinic in 1 year's time, sooner p.r.n.. Thank you for allowing me to partake in his care Medications: Changed From losartan 25 mg PO ONCE To losartan 25 mg PO DAILY Coding Level of Care Code Est Pt Level 4 (11019) Complex EM visit Add On G2211 Diagnoses Cardiomyopathy I42.9 CAD (coronary artery disease) I25.10 CPT Codes EKG - CPT: 36977-[id number], Complete ([id number])
== END 2024-05-17 09:49 | disposition home or self-care (01) ==
PROVIDERS: PCP Pediatrics; Visit Provider Internal Medicine Cardiovascular Disease
DX: I42.9 Cardiomyopathy, unspecified (principal); I25.10 Atherosclerotic heart disease of native coronary artery without angina pectoris
CPT/HCPCS: 93010; 99214; G2211

== ENCOUNTER → 2024-05-17 09:10 | Outpatient (BNVA) | payer MEDICARE, SELFPAY | PROVIDERS: PCP Pediatrics; Visit Provider Internal Medicine Cardiovascular Disease | DX: I42.9 Cardiomyopathy, unspecified (principal); I25.10 Atherosclerotic heart disease of native coronary artery without angina pectoris | CPT/HCPCS: 93005; 99212 ==

== ENCOUNTER 2024-09-19 12:06 | Outpatient (REF) | payer MEDICARE, SELFPAY ==
--- OUTSIDE RECORDS SUMMARY | 2024-09-19 13:33 | XMS_ITS | Encounter Summary ---
Author Organization [employer] Address [address] [facility] [address] [place] [address] Care Team Providers Care Reception Specialist Name Role Phone Marci Doan MD Primary Care Provider [phone] Encounter Details Date Type Department Care Team (Late st Contact Info) Description 10/03/2023 Orders Only [facility] [address] [place], [place] [phone] Provider, MD Leonidas Social History Tobacco Use Types Packs/Day Years Used Date Smoking Tobacco: Never Passive Smoke Exposure: Never Smokeless Tobacco: Never Depression Answer Date Recorded Patient Health Questionnaire-9 Score 1 07/22/2022 Housing Stability Answer Date Recorded What is your housing situation today? I have delmi nickerson 03/08/[address] you li ve. Do you have problems with any of the following? None of the above 03/08/2023 Food Insecurity Answer Date Recorded Within the past 12 months, y ou worried that your food would run out before you got money to buy more: Never True 03/08/2023 Within the past 12 months,th e food you bought just didn't last and you didn't have enough money to get more: Never True Transportation Answer Date Recorded In the past 12 months, has l ack of transportation kept you from medical appts, meetings, work or from getting things needed for daily living? No 03/08/2023 Utilities Answer Date Recorded In the past 12 months, has t he electric, gas, oil or water company threatened to shut off services in your home? No 03/08/2023 Depression Answer Date Recorded Patient Health Questionnaire-2 Score 0 07/22/2022 Sex and Gender Information Value Date Recorded Sex Assigned at Male 03/22/2022 10:17 AM EDT Legal Sex Male 10:17 AM EDT Gender Identity Choose not to disclose 10:17 AM EDT Sexual Orientation Choose not to disclose 2021 10:17 AM EDT documented as of this encounter Plan of Treatment Upcoming Encounters Date Type Department Care Team (Late st Contact Info) Description 10/09/2024 9:45 AM EDT Office Visit [facility] MED & PEDS [address] [place] [address] Marci Doan MD [address] [place] [address] documented as of this encounter Procedures Procedure Name Priority Date/Time Associated Diagnosis Comments CT ABDOMEN PELVIS W CONTRAST Routine 09/30/2023 3:35 PM EDT documented in this encounter Results * CT Abdomen Pelvis w/ Contrast (09/30/2023 3:35 PM EDT) Anatomical Region Laterality Modality Body, Pelvis, Abdomen Computed T omography us Historical Provider MD BERRY CT PROCEDURES Final R esult documented in this encounter Visit Diagnoses Not on filedocumented in this encounter Additional Health Concerns Assessment Noted Time PHQ-9 Depression Total Score: 1 07/23/19 23 1:58 PM EST documented as of this encounter Care Teams Reception Specialist Relationship Specialty Start Date End Date Marci Doan MD [address] [place] [address] PCP - General Family Medicine 05/23/18 documented as of this encounter
--- OUTSIDE RECORDS SUMMARY | 2024-09-19 13:33 | XMS_ITS | Clinical Summary ---
Author Organization [employer] Address [address] [place] [address] 7 [place] [address] Care Team Providers Care Applications Support Engineer Name Role Phone Marci Doan MD Primary Care Provider [phone] Allergies Active Allergy Reactions Criticality Noted Date Comments Statins Hives 06/25/2010 Medications albuterol (ProAir HFA) 108 (90 Base) MCG/ACT inhaler 4 times a day. 03/02/20 22 Active diclofenac (Cataflam) 50 MG tablet Take 1 tablet by mouth every 12 (twelve) hours. 10/07/19 21 Active losartan (Cozaar) 25 MG tablet 05/26/19 23 Active traMADol (Ultram) 50 MG tablet Take 50 mg by mouth if needed in the morning, at noon, and at bedtime. 05/21/20 22 Active fluticasone (Flonase) 50 MCG/ACT nasal sprayIndication s:Seasonal allergic rhinitis due to other allergic trigger spray 1 spray by intranasal route every day in each nostril 16 g 11 05/27/19 23 Active carvedilol (Coreg) 6.25 MG tablet Take 1 tablet by mouth 2 times daily. 07/07/19 23 Active rosuvastatin (Crestor) 5 MG tablet Take 5 mg by mouth in the morning. 06/20/19 23 Active Aspirin Low Dose 81 MG EC tablet Take 81 mg by mouth in the morning. 06/05/19 24 Active cholecalciferol (Vitamin D-3) 50 MCG (1999 UT) capsuleIndicati ons:Gastroesoph ageal reflux disease without esophagitis TAKE 1 CAPSULE BY MOUTH EVERY DAY 30 capsule 11 09/06/19 24 Active loratadine (Claritin) 10 MG tabletIndicatio ns:Seasonal allergic rhinitis due to other allergic trigger TAKE 1 TABLET BY MOUTH ONCE DAILY 90 tablet 3 06/27/19 25 Active omeprazole (PriLOSEC) [address] capsuleIndicati ons:Gastroesoph ageal reflux disease without esophagitis Take 1 capsule orally daily 90 capsule 07/11/19 25 Active Qvar RediHaler 80 MCG/ACT inhaler INHALE 1 PUFF BY MOUTH IN THE MORNING AND AT BEDTIME 10.6 g 11 08/22/19 25 Active fluticasone (Flovent) 220 MCG/ACT inhalerIndicati ons:Chronic asthmatic bronchitis (CMS/HCC) Inhale 1 puff in the morning and at bedtime. Rinse mouth with water after use to reduce aftertaste and incidence of candidiasis. Do not swallow. 12 g 3 08/25/19 25 026 Active Beclomethasone Diprop HFA (Qvar) 80 MCG/ACT inhaler Inhale 1 Inhalation. in the morning and at bedtime. 10.6 g 11 08/15/19 24 025 Discontinued fluticasone (Flovent) 220 MCG/ACT inhalerIndicati ons:Chronic asthmatic bronchitis (CMS/HCC) Inhale 1 puff in the morning and at bedtime. Rinse mouth with water after use to reduce aftertaste and incidence of candidiasis. Do not swallow. 12 g 3 08/24/19 25 025 Discontinued Active Problems Problem Noted Date Diagnosed Date Tinnitus, bilateral 07/11/2024 Chronic asthmatic bronchitis 04/24/2024 Coronary artery disease invo lving [place] coronary artery of [place] heart without angina pectoris 07/22/2022 Benign essential hypertension 02/26/2022 Dyslipidemia 04/07/2015 Allergic rhinitis 01/18/2012 Benign prostatic hyperplasia without lower urinary tract symptoms 01/18/2012 Gastroesophageal reflux disease 01/18/2012 Rheumatoid arthritis involvi ng multiple sites with positive rheumatoid factor 01/18/2012 Encounters Date Type Department Care Team Description 08/23/2024 Telephone [facility] MEDICINE [address] [place] [address] Marci Doan MD Medication Question 08/20/2024 Refill [facility] PEDS [address] [place] [address] Marci Doan MD 07/11/2024 9:30 AM EST Office Visit [facility] [address] [place] [address] Marci Doan MD Benign prostatic hyperplasia without lower urinary tract symptoms (Primary Dx); Gastroesophageal reflux disease without esophagitis; Benign essential hypertension; Tinnitus, bilateral 07/11/2024 Travel 06/28/2024 Patient Outreach [facility] [address] [place] [address] Marci Doan MD Pre-visit Planning (SDOH screening negative and Tobacco screening negative) 06/27/2024 Refill [facility] [address] [place] [address] Marci Doan MD Seasonal allergic rhinitis due to other allergic trigger from Last 3 Months Immunizations Name Administration Dates Next Due Hep B, adult 08/01/2009,02/12/2009,01/08/2009 Influenza High-dose Quadriva lent Preservative Free 02/11/2022,02/09/2021 Influenza injectable quadriv alent preservative free 03/21/2023,02/19/2020 Pneumococcal Conjugate PCV 13 07/25/2014 Pneumococcal Polysaccharide PPSV23 03/27/2019, TD (adult), 2 Lf tetanus tox oid, preservative free, adsorbed 12/28/2005 Tdap 03/29/2016 Zoster, Recombinant 06/20/2019,04/18/2019 Zoster, live 10/18/2012 Social History Tobacco Use Types Packs/Day Years Used Date Smoking Tobacco: Never Passive Smoke Exposure: Never Smokeless Tobacco: Never Tobacco Cessation:Counseling Given: Not Answered Depression Answer Date Recorded Patient Health Questionnaire-9 Score 1 04/24/2024 Patient Health Questionnaire-9 Score 1 04/24/2024 Last PHQ-9: Questionnaire Data Not on file 1 06/25/2023 Housing Stability Answer Date Recorded What is your housing situation today? I have delmi nickerson 06/28/[address] you li ve. Do you have problems with any of the following? None of the above 06/28/2024 Food Insecurity Answer Date Recorded Within the past 12 months, y ou worried that your food would run out before you got money to buy more: Never True 06/28/2024 Within the past 12 months,th e food you bought just didn't last and you didn't have enough money to get more: Never True 10/2024 Transportation Answer Date Recorded In the past 12 months, has l ack of transportation kept you from medical appts, meetings, work or from getting things needed for daily living? No 06/28/2024 Utilities Answer Date Recorded In the past 12 months, has t he [employer], gas, oil or water [employer] threatened to shut off services in your home? No 06/28/2024 Depression Answer Date Recorded Patient Health Questionnaire-2 Score 0 04/24/2024 Internet Access Answer Date Recorded Internet Access Q1 Yes 06/28/2024 Internet Access Q2 Not on file 06/28/2024 Sex and Gender Information Value Date Recorded Sex Assigned at Male 03/22/2022 10:17 AM EDT Legal Sex Male 10:17 AM EDT Gender Identity Choose not to disclose 10:17 AM EDT Sexual Orientation Choose not to disclose 2021 10:17 AM EDT Last Filed Vital Signs Vital Sign Reading Time Taken Comments Blood Pressure 120/72 07/11/2024 9:12 AM EST Pulse 68 07/11/2024 9:12 AM EST Temperature 37.1 ??C (98.8 ??F) 07/11/2024 9:12 AM ES T Respiratory Rate 20 07/11/2024 9:12 AM EST Oxygen Saturation 98% 04/24/2024 9:33 AM EST Inhaled Oxygen Concentration - - Weight 64 kg (141 lb) 07/11/2024 9:12 AM EST Height 163.8 cm (5' 4.5 ) 07/11/2024 9:12 AM EST Body Mass Index 23.83 07/11/2024 9:12 AM EST Plan of Treatment Upcoming Encounters Date Type Department Care Team ([facility] st Contact Info) Description 10/09/2024 9:45 AM EDT Office Visit [facility] MED & PEDS [address] [place] [address] Marci Doan MD [address] [place] [address] Health Maintenance Due Date Last Done Comments CT Colonography 1953 FIT DNA/Cologuard 1955 FIT 1955 FOBT 1955 Sigmoidoscopy 1955 RSV Patients and Patients Aged 60 years or older (1 - Risk 60-74 years 1-dose series) 2013 COVID-19 Vaccine ( season) 2024 01/11/2022, 05/05/2021, 10/07/2020, Additional history exists Influenza Vaccine (#1) 2024 , 02/11/2022, 02/09/2021, Additional history exists Alcohol/Substance Use Screening 04/24/2025 04/24/2024 Depression Screening 04/24/2025 04/24/2024, 04/24/20 SDOH Screening 06/28/2025 06/28/2024 Tobacco Screening 07/11/2025 07/11/2024 DTaP/Tdap/Td Vaccines (2 - Td or Tdap) 03/29/2026 03/29/2016, 12/28/2005 Colonoscopy 07/23/2027 07/22/2017 Colorectal Cancer Screening 07/23/2027 Lipid Panel 06/28/2028 06/28/2023, 11/21, 09/17/2022, Additional history exists Hepatitis B Vaccines Completed 08/01/2009, 02/12/2009, 01/08/2009 Pneumococcal Vaccine: 50+ Years Completed 03/27/2019, 07/25/2014, 12/28/2005 Zoster Vaccines Completed 06/20/2019, 03/24, 10/18/2012 Hepatitis C Screening Completed 04/24/2024 HIB Vaccines Aged Out No longer eligi ble based on patient's age to complete this topic HPV Vaccines Aged Out No longer eligi ble based on patient's age to complete this topic Hepatitis A Vaccines Aged Out No long er eligible based on patient's age to complete this topic IPV Vaccines Aged Out No longer eligi ble based on patient's age to complete this topic Meningococcal Vaccine Aged Out No audrey nancy eligible based on patient's age to complete this topic RSV under 20 months Aged Out No longe r eligible based on patient's age to complete this topic Rotavirus Vaccines Aged Out No longer eligible based on patient's age to complete this topic Procedures Procedure Name Priority Date/Time Associated Diagnosis Comments HEPATITIS C AB W/REFL TO HCV RNA, QN, PCR Routine 04/24/2024 10:05 AM EST Gastroesophageal reflux disease without esophagitis Benign essential hypertension Coronary artery disease involving [place] coronary artery of [place] heart without angina pectoris LIPID PANEL, STANDARD Routine 06/28/2023 7:15 AM EST HM COLONOSCOPY Routine 07/22/2017 from Last 3 Months or Most Recently Relevant to Health Maintenance Results * Hepatitis C Antibody with Reflex to HCV, RNA, Quantitative, Real-Time PCR (04/24/2024 10:05 AM EST) Hepatitis C Antibody Nonreactive Nonreactive [facility] Comment:Antibodies to HCV no t detected; does not exclude early acuteHCV infection. Blood Venous blood specimen / Unknown 04/24/2024 10:05 AM EST 04/24/2024 1:35 PM EST us Marci Daon MD LAB BLOOD ORDERABLES Final Re sult [facility] [address] [place] [phone] * Lipid Panel, Standard (06/28/2023 7:15 AM EST) Triglycerides 59 <150 mg/dL [facility] Comment:Desirable Triglyceri de: less than 150 mg/dLBorderline High Triglyceride 150-199 mg/dLHigh Triglyceride: 200-499 mg/dLVery High Triglyceride: greater than or equal to 5OO mg/dL Cholesterol 129 <200 mg/dL [facility] Comment:Desirable Cholestero l: less than 200 mg/dLBorderline High Cholesterol: 200-239 mg/dLHigh Cholesterol: greater than 239 mg/dL LDL Cholesterol Calculated 67 <100 mg/dL [facility] Comment:Desirable LDL: less than 100 mg/dLNear Optimal/Above Optimal LDL: 110- 129 mg/dLBorderline High LDL: 130-159 mg/dLHigh LDL: 160-189 mg/dLVery High LDL: greater than or equal to 190 mg/dL HDL Cholesterol 51 >40 mg/dL [facility] Comment:Desirable HDL: great er than 40 mg/dL Note: This HDL assay may give artificially low results in patients with liver disease. 06/28/2023 7:15 AM EST 06/28/2023 7:17 AM EST us Generic External Data Provider LAB BLOOD ORDERAB LES Final Result [facility] [address] [place] [phone] * Colonoscopy (07/22/2017) Colonoscopy Normal Normal Narrative Rosa Fuentes - 07/22/2017 Recommended 10 year follow up Historical Provider HEALTH MAINTENANCE Final Result from Last 3 Months or Most Recently Relevant to Health Maintenance Insurance MEDICARE ADVANTAGE HMO Care Teams Applications Support Engineer Relationship Specialty Start Date End Date Marci Doan MD [address] [place] [phone] PCP - General Family Medicine 05/23/18
--- OUTSIDE RECORDS SUMMARY | 2024-09-19 13:33 | XMS_ITS | Encounter Summary ---
Author Organization [employer] Address [address] [facility] 7 [place] [address] Care Team Providers Care Automation Manager Name Role Phone Marci Doan MD Primary Care Provider [phone] Encounter Details Date Type Department Care Team ([facility] st Contact Info) Description 03/29/2023 Abstract [facility] MED[facility] [address] [place] [address] Marci Doan MD [address] [place] [address] Social History Tobacco Use Types Packs/Day Years [...] 9:45 AM EDT Office Visit [facility] MED & PEDS [address] [place], [place] [phone] Marci Doan MD [address] [place] [address] documented as of this encounter Procedures Procedure Name Priority Date/Time Associated Diagnosis Comments COLONOSCOPY Routine 07/22/2017 documented in this encounter Results * Hm Colonoscopy (07/22/2017) Colonoscopy Normal Normal Narrative Rosa Fuentes - 07/22/2017 Recommended 10 year follow up Historical Provider HEALTH MAINTENANCE Final Result documented in this encounter Visit Diagnoses Not on filedocumented in this encounter Additional Health Concerns Assessment Noted Time PHQ-9 Depression Total Score: 1 07/23/19 23 1:58 PM EST documented as of this encounter Care Teams Automation Manager Relationship Specialty Start Date End Date Marci Doan MD [address] [place] [address] PCP - General Family Medicine 05/23/18 documented as of this encounter
--- OUTSIDE RECORDS SUMMARY | 2024-09-19 13:33 | XMS_ITS | Encounter Summary ---
Author Organization [email or web address] Address [address] [place] [address] 7 [place] [address] Care Team Providers Care Supervisor Bindery Name Role Phone Marci Doan MD Primary Care Provider [phone] Reason for Visit * Reason Comments Med Refill Encounter Details Date Type Department Care Team ([facility] st Contact Info) Description 06/03/2023 Refill [facility] MED & PEDS [address] [place], [place] [phone] Marci Doan MD [address] [place] [address] Seasonal allergic rhinitis due to other allergic trigger Social History Tobacco Use Types Packs/Day Years [...] Description 10/09/2024 9:45 AM EDT Office Visit [facility]EDS [address] [place] [address] Marci Doan MD [address] [place] [address] documented as of this encounter Visit Diagnoses Diagnosis Seasonal allergic rhinitis due to other allergic trigger documented in this encounter Additional Health Concerns Assessment Noted Time PHQ-9 Depression Total Score: 1 07/23/19 23 1:58 PM EST documented as of this encounter Care Teams Supervisor Bindery Relationship Specialty Start Date End Date Marci Doan MD [address] [place] [address] PCP - General Family Medicine 05/23/18 documented as of this encounter
--- OUTSIDE RECORDS SUMMARY | 2024-09-19 13:34 | XMS_ITS | Clinical Summary ---
Author Organization [facility] it Address [address] [place] [address] Care Team Providers Care [place] Operator Name Role Phone Unavailable Primary Care Provider Unavailabl e Social History Tobacco Use Types Packs/Day Years Used Date Smoking Tobacco: Never Assessed Sex and Gender Information Value Date Recorded Sex Assigned at Not on file Legal Sex Male 1:39 PM EDT Gender Identity Not on file Sexual Orientation Not on file Plan of Treatment Health Maintenance Due Date Last Done Comments DTaP,Tdap,and Td Vaccines (1 - Tdap) 1972 Pneumococcal Vaccine: 50+ Ye ars (1 of 1 - PCV) 2003 Zoster Vaccines (1 of 2) 2003 Abdominal Aortic Aneurysm (A AA) Screen 12/23/2023 Cholesterol Screening (Lipid Panel) 12/23/2023 Colorectal Cancer Screening: Colonoscopy 12/23/2023 Depression Screening 12/23/2023 Falls Risk Assessment 12/23/2023 Hepatitis C Screening 12/23/2023 Social Influencers of Health Screening 12/23/2023 COVID-19 Vaccine ( - 2023-2 5 season) 2024 Influenza Vaccine (Season Ended) 2025 RSV Immunization Adult Patie nts (1 - 1-dose 75+ series) 2028 HIB Vaccines Aged Out No longer eligi ble based on patient's age to complete this topic HPV Vaccines Aged Out No longer eligi ble based on patient's age to complete this topic Hepatitis A Vaccines Aged Out No long er eligible based on patient's age to complete this topic Hepatitis B Vaccines Aged Out No long er eligible based on patient's age to complete this topic IPV Vaccines Aged Out No longer eligi ble based on patient's age to complete this topic MMR Vaccines Aged Out No longer eligi ble based on patient's age to complete this topic Meningococcal ACWY Vaccine Aged Out N o longer eligible based on patient's age to complete this topic Meningococcal B Vaccine Aged Out No l onger eligible based on patient's age to complete this topic RSV Immunization Patients Un nina 20 months Aged Out No longer eligible b ased on patient's age to complete this topic Varicella Vaccines Aged Out No longer eligible based on patient's age to complete this topic
== END 2024-09-19 12:07 | disposition home or self-care (01) ==
LOC: HO.SH 12:06
PROVIDERS: Visit Provider Pediatrics
DX: Z01.118 Encounter for examination of ears and hearing with other abnormal findings (principal); H90.3 Sensorineural hearing loss, bilateral; H93.13 Tinnitus, bilateral
CPT/HCPCS: 92557; 92567